=== PATIENT | male | born 1970 | race Caucasian/White ===

== ENCOUNTER 2020-11-18 07:46 | Emergency (ER) | payer BC ==
[~2020-11-18] VITALS: Ht 175.3 cm; Wt 90.0 kg
[2020-11-18 07:56] VITALS: BP 129/85; TEMP 98
[2020-11-18] MEDS ORDERED: BLEPH-105 ML OU (08:27)
[2020-11-18 08:40] VITALS: PULSE 86
== END 2020-11-18 08:40 | disposition home or self-care (01) ==
LOC: COL.ER 07:46 → EDBD 07:49 → COL.ER 08:40
DX: S05.01XA Injury of conjunctiva and corneal abrasion without foreign body, right eye, initial encounter (principal); X58.XXXA Exposure to other specified factors, initial encounter